=== PATIENT | female | born 1950 | race Caucasian/White ===

== ENCOUNTER 2021-02-17 03:37 | Outpatient (CLI) | payer OTHER, SELFPAY ==
[2021-02-17 12:53] LABS: Source Nasal/Nares
[2021-02-17 17:56] LABS: COVID-19 PCR Negative (Negative)
== END 2021-02-17 03:38 | disposition home or self-care (01) ==
LOC: LBO 03:37
PROVIDERS: PCP Physician Assistant Medical; Visit Provider Ophthalmology
DX: Z20.822 Contact with and (suspected) exposure to COVID-19 (principal); Z01.818 Encounter for other preprocedural examination
CPT/HCPCS: 87635

== ENCOUNTER 2021-02-19 07:27 | Day surgery (SDC) | payer MEDICARE, SELFPAY ==
[2021-02-19] MEDS: Tropicam./Phenyleph. (1/2.5%) 5 ML BTL OS ×3 (07:48→08:00)
[2021-02-19 07:56] VITALS: BP 144/65; PULSE 62; RESP 16; TEMP 36; O2SAT 99
--- NOTE | 2021-02-19 08:01 | ANES.PREOP_ITS ---
General Info Date of Service Date Performed: 02/19/21 Height: 5 ft 1 in Weight: 67.2 kg Body Mass Index (BMI): 28.0 Surgical Procedure: Operation Date: 02/19/21 09:40 Proposed Procedures Side Surgeon p Cataract Extraction with IOL Implant Left Chucho Parson MD Meds Allergies and Home Medications Allergies Allergy/AdvReac Type Severity Reaction Status Date / Time Penicillins Allergy Unknown Verified 02/19/21 07:50 Home Medication Medication Instructions Recorded cholecalciferol (vitamin D3) 125 mcg PO DAILY 02/17/21 [Vitamin D3] omega-3 fatty acids [[place] 3] 1 cap PO DAILY 02/17/21 Current Visit Medications: Current Medications Generic Name Dose Route Start Last Admin Trade Name Freq PRN Reason Stop Dose Admin Acetaminophen 1,000 mg 02/19/21 06:00 Acetaminophen 500 Mg Tab PO Q4H PRN PRN Miscellaneous Medication 0 ml 02/19/21 06:00 Prednisolone 1%, Moxifloxacin 0.5%, Nepafenac 0.1% 5ml Btl OS DIRECTED VIDHYA Miscellaneous Medication 0 ml 02/19/21 06:00 02/19/21 08:00 Tropicam./Phenyleph. (1/2.5%) 5 Ml Btl OS 1 drp DIRECTED VIDHYA Administration Tetracaine HCl 0 ml 02/19/21 06:00 Tetracaine 0.5% 4 Ml Btl OS DIRECTED VIDHYA PFSH Active Problems Active Problems: Problem Status Onset Code Posterior subcapsular age-related cataract of left eye H25.042 Cortical cataract of left eye H26.9 Nuclear sclerotic cataract of left eye H25.12 Medical History Medical History Bilateral cataracts HLD (hyperlipidemia) Osteopenia Prehypertension Rhinitis Vitamin D deficiency Surgical History Surgical History Hx of colonoscopy Hx of tubal ligation S/P tonsillectomy Tobacco Smoking/Tobacco Use Status: Never Alcohol Alcohol Intake: never Substance Use Substance use: Never Substance use type: does not use Vital Signs and Lab Results Vital Signs Most Recent Vital Signs in EMR: Most Recent Vital Signs Temp Pulse Resp BP Pulse Ox 36 C L 62 16 144/65 H 99 02/19/21 07:56 02/19/21 07:56 02/19/21 07:56 02/19/21 07:56 02/19/21 07:56 Lab Results Blood Type / Crossmatch: No Data to Display Complete Blood Count: No Data to Display Complete Metabolic Panel: No Data to Display Liver Function Panel: No Data to Display Coagulation Panel: No Data to Display Cardiac Panel: No Data to Display Arterial Blood Gas: No Data to Display Venous Blood Gas: No Data to Display Pancreas Panel: No Data to Display Thyroid Panel: No Data to Display Infectious Disease: Coronavirus (COVID-19)(PCR) Negative (Negative) 02/17/21 10:06 02/17/21 Coronavirus 2019 Source Nasal/Nares 02/17/21 10:06 02/17/21 Blood Cultures: No Data to Display Toxicology Panel: No Data to Display Anesthesia Assessment and Plan Anesthesia History Personal History: No History of Anesthesia Complications Family History: No Family History of Anesthesia Complications Exercise Tolerance Exercise Tolerance: Metabolic Equivalents>4 Pertinent Negatives Pertinent Negatives: No Symptoms of GERD, No Major Cardiovascular Symptoms or Complaints and No Major Pulmonary Symptoms or Complaints Cardiac & Pulmonary Exam Cardiac Exam: Normal S1/S2 Heart Sounds Pulmonary Exam: Clear Bilateral Breath Sounds Airway Exam Known Difficult Airway: No Mallampati Class: 2 Mouth Opening: Normal (> 3cm) Thyromental Distance: Greater than 3 cm Neck Range of Motion: Full ROM Neck Circumference: Normal Teeth Condition: Removable Dentures/Plates Upper ASA Classification ASA Score: ASA 2 Emergency Case?: No NPO Status NPO Status: NPO Clears >2 hours, Solids >8 hours Anesthesia Plan Resuscitation Status: Full Code Anesthesia Technique: MAC Anesthesia Airway Planned: Natural Airway Monitors Used: Standard Monitors
[2021-02-19 08:19] VITALS: BMI 28.0
[2021-02-19] MEDS: Povidone-Iodine Ophth 30 ML BTL (09:01)
[2021-02-19] MEDS: Lidocaine 2% Jelly 6 ML SYR (09:02)
[2021-02-19] MEDS: Lidocaine 1% Pres-Free 5 ML VIAL (09:03)
[2021-02-19] MEDS: Balanced Salt Soln.-PLUS 500 ML BAG (09:04)
[2021-02-19] MEDS: Duovisc Viscoelastic System EACH 1 EACH (09:04)
[2021-02-19] MEDS: Tetracaine 0.5% 4 ML BTL OS (09:06)
[2021-02-19 09:20] VITALS: BP 142/62; PULSE 58; RESP 18; TEMP 36.2; O2SAT 98
--- NOTE | 2021-02-19 09:20 | W.PM.DSUDISC ---
Discharge Plan Disposition Patient Disposition: HOME Condition: Good Discharge Details Attending Provider: Chucho Parson Primary Care Provider: Mariama Mason Home Meds and New Rx's Prescriptions: No Action [place] 3 Capsule 1 cap PO DAILY RF: 0 cholecalciferol (vitamin D3) [Vitamin D3] 125 mcg (5,000 unit) Tablet 125 mcg PO DAILY RF: 0 Discharge Instructions Stand Alone Forms: Post-op Topical Cataract, Nahid Garcia ([facility]U) Discharge Orders Discharge Orders: Discharge Order (Routine); Ordered 02/19/21 Ordered By: Chucho Parson DS: Diagnosis Discharge Diagnosis (1) Posterior subcapsular age-related cataract of left eye: Status: Resolved (2) Cortical cataract of left eye: Status: Resolved (3) Nuclear sclerotic cataract of left eye: Status: Resolved
--- NOTE | 2021-02-19 09:21 | W.PM.OP ---
Date of service: 02/19/21 Time of Service: : Operative Note Operative Note DATE OF PROCEDURE: 02/19/21 PRE-OP DIAGNOSIS: Nuclear/cortical/posterior subcapsular cataract, left eye POST-OP DIAGNOSIS: same PROCEDURE: Cataract extraction using phacoemulsification with intraocular lens implant, left eye SURGEON: Chucho Parson ANESTHESIA TYPE: Local By Surgeon and MAC Refer to Anesthesia Record PATHOLOGY: none sent COMPLICATIONS: None Patient was transported to: same day Patient's condition: stable Implants: Isiah and Isiah / [employer] Tecnis [id number] Indications: Progressive decreased vision due to cataract, left eye, with poor red reflex Procedure Description: CATARACT SURGERY OPERATIVE REPORT PREOPERATIVE DIAGNOSIS: 1. Nuclear/cortical/posterior subcapsular cataract, left eye POSTOPERATIVE DIAGNOSIS: Same OPERATION: 1. Cataract extraction using phacoemulsification with posterior chamber intraocular lens implant, left eye. IOL: IOL Media Sales Representative/Model: Isiah & Isiah / MAR Tecnis [id number] IOL Power: + 22.0 diopters IOL Serial Number: [id number] Optic Diameter: 6.0 mm Haptic/Overall Diameter: 13.0 mm PHACO INFO: Stefan [employer]urion Vision System with OZil and Active Fluidics Cumulative Dispersed Energy (CDE): 12.12 seconds SURGEON: Chucho Parson MD, ANTHONY ANESTHESIA: Monitored A [facility] (MAC), with local sub-tenon's anesthetic infiltration COMPLICATIONS: None SPECIMENS: None INDICATIONS FOR PROCEDURE: The patient is a 71-year-old lady with history of diminished visual acuity in her left eye secondary to the development of nuclear/cortical/posterior subcapsular cataract. She is significantly symptomatic that she desires cataract surgery and attempt to improve and maximize her vision. The option of cataract surgery was offered to the patient and she wished to proceed. PROCEDURE: The correct surgical eye was identified and marked as the left eye and the pupil was dilated in the preoperative area using mydriatics and cycloplegics. The dilated pupil size was 7.0 mm. She elected to proceed without oral sedation. The patient was brought to the operating room where cardiopulmonary monitoring was instituted and surgical time-out was performed, confirming the correct operative eye and IOL power. Topical anesthesia was administered and ophthalmic povidone-iodine 5% was instilled into the conjunctival fornices. Lidocaine gel was applied to the cornea and the rosa elena-ocular area was prepped with Betadine 10% solution and draped in the usual sterile fashion for intraocular surgery, including an aperture drape. A Tegaderm transparent film dressing was cut in half and used to cover the lashes and lid margins. Care was taken to sequester the lashes and lid margins under the Tegaderm dressing. A lid speculum was placed between the lids of the operative eye and the Stuart-Bryce operating microscope was maneuvered into position. Lucia scissors were then used to make a conjunctival buttonhole approximately 6mm posterior to the limbus in the inferonasal quadrant. Blunt dissection was carried out to expose bare sclera, and a blunt-tipped sub-tenon?s anesthesia cannula was introduced and passed posteriorly along the globe where non-preserved plain lidocaine was injected into posterior sub-Tenon?s space. A sideport knife was used to make a paracentesis port superiorly/superiortemporally. Intraocular phenylephrine/lidocaine was injected int the anterior chamber.. The anterior chamber was filled with viscoelastic. A 2.4mm keratome knife was used to create a half-thickness groove at the limbus and then to construct a three-plane near-clear corneal tunnel extending 2.0mm into clear cornea at the 3:00 position. A flap was raised on the anterior capsule and capsulorhexis forceps were used to complete a continuous curvilinear capsulorhexis of 5.0 mm. Balanced salt solution was then used to perform cortical cleaving hydrodissection and nuclear hydrodelineation until the lens could be freely rotated within the capsular bag. The lens nucleus was then disassembled and removed within the capsular bag and iris plane using phacoemulsification. Residual cortical material was removed using the 45-degree angled silicone I/A tip with 0.3mm port. The posterior capsule was carefully polished to remove as much residual lens epithelial cells as safely possible. The capsular bag was then inflated and the anterior chamber deepened with viscoelastic. The lens implant described above was inserted into the capsular bag using the MAR [place] Injector. A Kuglen hook was used to dial the IOL into position. Residual viscoelastic was then removed first from posterior to the IOL, then from the anterior chamber using the I/A handpiece. The lens implant was noted to center nicely within the capsular bag. The incisions were stromally hydrated, and the anterior chamber was reformed using BSS. Then 0.5cc of moxifloxacin 1.0mg/ml were injected into the capsular bag and anterior chamber. The incisions were checked with a Weck spear and found to be secure. Several drops of ophthalmic povidone-iodine 5% were then applied to the eye followed by two drops of Imprimis combination prednisolone/moxifloxacin/nepafenac solution. The drapes were removed and a clear plastic protective eye shield was placed over the eye. The patient was then returned to Same Day Surgery in stable condition.
--- NOTE | 2021-02-19 09:46 | W.ANESPOSTOP ---
Postoperative Evaluation Date, Time and Location Date Performed: 02/19/21 Time Performed: 09:20 Patient Location: Day Surgery Unit Vital Signs Most Recent Imported Vital Signs: Most Recent Vital Signs Temp Pulse Resp BP Pulse Ox 36.2 C L 58 L 18 142/62 H 98 02/19/21 09:20 02/19/21 09:20 02/19/21 09:20 02/19/21 09:20 02/19/21 09:20 Pain Score Most Recent Pain Score: Most Recent Pain Score Pain Level 0 02/19/21 09:20 Assessment Mental Status: Awake (Alert & Oriented to Patient Baseline) Airway and Respiratory Function: Patent airway with normal (patient baseline) respiratory exam Cardiovascular Function: Hemodynamically Stable Hydration Status: Adequately Hydrated Nausea & Vomiting: No Nausea or Vomiting Pain: Pt. Denies Any Pain Peripheral Nerve Block: Patient did not receive a nerve block
== END 2021-02-19 09:45 | disposition home or self-care (01) ==
PROVIDERS: PCP Physician Assistant Medical; Visit Provider Ophthalmology
PROC: (CPT 66984; principal; 2021-02-19 09:30)
DX: H25.042 Posterior subcapsular polar age-related cataract, left eye (principal)
CPT/HCPCS: 66984; V2632

== ENCOUNTER 2021-02-26 02:39 | Outpatient (CLI) | payer OTHER, SELFPAY ==
[2021-02-26 13:25] LABS: Source Nasal/Nares
[2021-02-26 16:55] LABS: COVID-19 PCR Negative (Negative)
== END 2021-02-26 02:40 | disposition home or self-care (01) ==
LOC: LBO 02:39
PROVIDERS: PCP Physician Assistant Medical; Visit Provider Ophthalmology
DX: Z20.822 Contact with and (suspected) exposure to COVID-19 (principal); Z01.818 Encounter for other preprocedural examination
CPT/HCPCS: 87635

== ENCOUNTER 2021-03-01 07:11 | Day surgery (SDC) | payer OTHER, SELFPAY ==
--- NOTE | 2021-03-01 07:39 | W.ANESPRE ---
General Info Date of Service Date Performed: 03/01/21 Height: 5 ft 1 in Weight: 67.2 kg Body Mass Index (BMI): 28.0 Surgical Procedure: Operation Date: 03/01/21 09:40 Proposed Procedures Side Surgeon p Cataract Extraction with IOL Implant Right Chucho Parson MD Meds Allergies and Home Medications Allergies Allergy/AdvReac Type Severity Reaction Status Date / Time Penicillins Allergy Unknown Verified 03/01/21 08:14 Home Medication Medication Instructions Recorded cholecalciferol (vitamin D3) 125 mcg PO DAILY 02/17/21 [Vitamin D3] omega-3 fatty acids [[place] 3] 1 cap PO DAILY 02/17/21 Current Visit Medications: Current Medications Generic Name Dose Route Start Last Admin Trade Name Freq PRN Reason Stop Dose Admin Acetaminophen 1,000 mg 03/01/21 06:00 Acetaminophen 500 Mg Tab PO Q4H PRN PRN Miscellaneous Medication 0 ml 03/01/21 06:00 Prednisolone 1%, Moxifloxacin 0.5%, Nepafenac 0.1% 5ml Btl OD DIRECTED VIDHYA Miscellaneous Medication 0 ml 03/01/21 06:00 Tropicam./Phenyleph. (1/2.5%) 5 Ml Btl OD DIRECTED VIDHYA Tetracaine HCl 0 ml 03/01/21 06:00 Tetracaine 0.5% 4 Ml Btl OD DIRECTED VIDHYA PFSH Active Problems Active Problems: Problem Status Onset Code Cortical cataract of right eye H26.9 Nuclear sclerotic cataract of right eye H25.11 Posterior subcapsular age-related cataract of left eye H25.042 Cortical cataract of left eye H26.9 Nuclear sclerotic cataract of left eye H25.12 Medical History Medical History Bilateral cataracts HLD (hyperlipidemia) Osteopenia Prehypertension Rhinitis Vitamin D deficiency Surgical History Surgical History Hx of colonoscopy Hx of tubal ligation S/P tonsillectomy Tobacco Smoking/Tobacco Use Status: Never Alcohol Alcohol Intake: never Substance Use Substance use: Never Substance use type: does not use Vital Signs and Lab Results Lab Results Blood Type / Crossmatch: No Data to Display Complete Blood Count: No Data to Display Complete Metabolic Panel: No Data to Display Liver Function Panel: No Data to Display Coagulation Panel: No Data to Display Cardiac Panel: No Data to Display Arterial Blood Gas: No Data to Display Venous Blood Gas: No Data to Display Pancreas Panel: No Data to Display Thyroid Panel: No Data to Display Infectious Disease: Coronavirus (COVID-19)(PCR) Negative (Negative) 02/26/21 11:04 02/26/21 Coronavirus 2019 Source Nasal/Nares 02/26/21 11:04 02/26/21 Blood Cultures: No Data to Display Toxicology Panel: No Data to Display Anesthesia Assessment and Plan Anesthesia History Personal History: No History of Anesthesia Complications Family History: No Family History of Anesthesia Complications Exercise Tolerance Exercise Tolerance: Metabolic Equivalents>4 Pertinent Negatives Pertinent Negatives: No Symptoms of GERD Cardiac & Pulmonary Exam Cardiac Exam: Normal S1/S2 Heart Sounds Pulmonary Exam: Clear Bilateral Breath Sounds Airway Exam Known Difficult Airway: No Mallampati Class: 2 Mouth Opening: Normal (> 3cm) Thyromental Distance: Greater than 3 cm Neck Range of Motion: Full ROM Neck Circumference: Normal Teeth Condition: Normal Dentition and Removable Dentures/Plates Upper ASA Classification ASA Score: ASA 2 Emergency Case?: No NPO Status NPO Status: NPO Clears >2 hours, Solids >8 hours Anesthesia Plan Resuscitation Status: Full Code Anesthesia Technique: MAC Anesthesia Airway Planned: Natural Airway Monitors Used: Standard Monitors
[2021-03-01 08:01] VITALS: BP 124/59; PULSE 51; RESP 16; TEMP 36.8; O2SAT 100
[2021-03-01] MEDS: Tropicam./Phenyleph. (1/2.5%) 5 ML BTL OD ×3 (08:10→08:20)
[2021-03-01 08:33] VITALS: BMI 28.0
[2021-03-01] MEDS: Tetracaine 0.5% 4 ML BTL OD (09:06)
[2021-03-01] MEDS: Duovisc Viscoelastic System EACH 1 EACH (09:09)
[2021-03-01] MEDS: Balanced Salt Soln.-PLUS 500 ML BAG (09:09)
[2021-03-01] MEDS: Lidocaine 1% Pres-Free 5 ML VIAL (09:10)
[2021-03-01] MEDS: Lidocaine 2% Jelly 6 ML SYR (09:10)
[2021-03-01] MEDS: Povidone-Iodine Ophth 30 ML BTL (09:11)
--- NOTE | 2021-03-01 09:30 | W.ANESPOSTOP ---
Postoperative Evaluation Date, Time and Location Date Performed: 03/01/21 Time Performed: 09:31 Patient Location: Day Surgery Unit Vital Signs Most Recent Imported Vital Signs: Most Recent Vital Signs Temp Pulse Resp BP Pulse Ox 36.8 C 51 L 16 124/59 L 100 03/01/21 08:01 03/01/21 08:01 03/01/21 08:01 03/01/21 08:01 03/01/21 08:01 Most Recent Manually Entered Vital Signs: Adult Blood Pressure: 128/60 Heart Rate: 51 Respirations: 18 Oxygen Saturation (%): 99 Temperature (C): 36.1 C Pain Score (0-10 Scale): 0 Pain Score Most Recent Pain Score: Most Recent Pain Score Pain Level 0 03/01/21 08:01 Assessment Mental Status: Awake (Alert & Oriented to Patient Baseline) Airway and Respiratory Function: Patent airway with normal (patient baseline) respiratory exam Cardiovascular Function: Hemodynamically Stable Hydration Status: Adequately Hydrated Nausea & Vomiting: No Nausea or Vomiting Pain: Pt. Denies Any Pain Peripheral Nerve Block: Other (Local by Dr. Parson)
[2021-03-01 09:31] VITALS: BP 128/60; PULSE 51; RESP 18; TEMPC 36.1; O2SAT 99
--- NOTE | 2021-03-01 09:32 | W.PM.DSUDISC ---
Discharge Plan Disposition Patient Disposition: HOME Condition: Good Discharge Details Attending Provider: Chucho Parson Primary Care Provider: Mariama Mason Home Meds and New Rx's Prescriptions: No Action [place] 3 Capsule 1 cap PO DAILY RF: 0 cholecalciferol (vitamin D3) [Vitamin D3] 125 mcg (5,000 unit) Tablet 125 mcg PO DAILY RF: 0 Discharge Instructions Stand Alone Forms: Post-op Topical Cataract Discharge Orders Discharge Orders: Discharge Order (Routine); Ordered 03/01/21 Ordered By: Chucho Parson DS: Diagnosis Discharge Diagnosis (1) Cortical cataract of right eye: Status: Resolved (2) Nuclear sclerotic cataract of right eye: Status: Resolved
--- NOTE | 2021-03-01 09:33 | W.PM.OP ---
Date of service: 03/01/21 Time of Service: 09:33 Operative Note Operative Note DATE OF PROCEDURE: 03/01/21 PRE-OP DIAGNOSIS: Nuclear/cortical cataract, right eye POST-OP DIAGNOSIS: same PROCEDURE: Cataract extraction using phacoemulsification with intraocular lens implant, right eye SURGEON: Chucho Parson ANESTHESIA TYPE: Local By Surgeon and MAC Refer to Anesthesia Record ESTIMATED BLOOD LOSS: 0 PATHOLOGY: none sent COMPLICATIONS: None Patient was transported to: same day Patient's condition: stable Implants: Isiah & Isiah/MAR Tecnis [id number] Indications: Progressive visual loss due to cataract, right eye Procedure Description: CATARACT SURGERY OPERATIVE REPORT PREOPERATIVE DIAGNOSIS: 1. Nuclear/cortical cataract, right eye POSTOPERATIVE DIAGNOSIS: Same OPERATION: 1. Cataract extraction using phacoemulsification with posterior chamber intraocular lens implant, right eye. IOL: IOL French Folder/Model: Isiah & Isiah / MAR Tecnis [id number] IOL Power: + 22.0 diopters IOL Serial Number: [id number] Optic Diameter: 6.0mm Haptic/Overall Diameter: 13.0mm PHACO INFO: Stefan [employer] Vision System with OZil and Active Fluidics Cumulative Dispersed Energy (CDE): 7.36 seconds SURGEON: Chucho Parson MD, ANTHONY ANESTHESIA: Monitored Anesthesia Care (MAC), with local sub-tenon's anesthetic infiltration COMPLICATIONS: None SPECIMENS: None INDICATIONS FOR PROCEDURE: The patient is a 71-year-old lady with history of diminished visual acuity in both eyes secondary to development of bilateral cataracts. She has already undergone cataract surgery in the left eye and is doing well postoperatively. She now presents for cataract surgery in the right eye. PROCEDURE: The correct surgical eye was identified and marked as the right eye and the pupil was dilated in the preoperative area using mydriatics and cycloplegics. The dilated pupil size was 7.0 mm. She elected to proceed without oral sedation.. The patient was brought to the operating room where cardiopulmonary monitoring was instituted and surgical time-out was performed, confirming the correct operative eye and IOL power. Topical anesthesia was administered and ophthalmic povidone-iodine 5% was instilled into the conjunctival fornices. Lidocaine gel was applied to the cornea and the rosa elena-ocular area was prepped with Betadine 10% solution and draped in the usual sterile fashion for intraocular surgery, including an aperture drape. A Tegaderm transparent film dressing was cut in half and used to cover the lashes and lid margins. Care was taken to sequester the lashes and lid margins under the Tegaderm dressing. A lid speculum was placed between the lids of the operative eye and the Stuart-Bryce operating microscope was maneuvered into position. Lucia scissors were then used to make a conjunctival buttonhole approximately 6mm posterior to the limbus in the inferonasal quadrant. Blunt dissection was carried out to expose bare sclera, and a blunt-tipped sub-tenon?s anesthesia cannula was introduced and passed posteriorly along the globe where non-preserved plain lidocaine was injected into posterior sub-Tenon?s space. A sideport knife was used to make a paracentesis port inferotemporally. Intraocular phenylephrine/lidocaine was injected into the anterior chamber. The anterior chamber was filled with viscoelastic. A 2.4mm keratome knife was used to create a half-thickness groove at the limbus and then to construct a three-plane near-clear corneal tunnel extending 2.0mm into clear cornea superiortemporally. A flap was raised on the anterior capsule and capsulorhexis forceps were used to complete a continuous curvilinear capsulorhexis of 5.5 mm. Balanced salt solution was then used to perform cortical cleaving hydrodissection and nuclear hydrodelineation until the lens could be freely rotated within the capsular bag. The lens nucleus was then disassembled and removed within the capsular bag and iris plane using phacoemulsification. Residual cortical material was removed using the I/A handpiece. The posterior capsule was carefully polished to remove as much residual lens epithelial cells as safely possible. The capsular bag was then inflated and the anterior chamber deepened with viscoelastic. The lens implant described above was inserted into the capsular bag using the MAR [place] Injector. A Kuglen hook was used to dial the IOL into position. Residual viscoelastic was then removed first from posterior to the IOL, then from the anterior chamber using the I/A handpiece. The lens implant was noted to center nicely within the capsular bag. The incisions were stromally hydrated, and the anterior chamber was reformed using BSS. Then 0.5cc of moxifloxacin 1.0mg/ml were injected into the capsular bag and anterior chamber. The incisions were checked with a Weck spear and found to be secure. Several drops of ophthalmic povidone-iodine 5% were then applied to the eye followed by two drops of Imprimis combination prednisolone/moxifloxacin/nepafenac solution. The drapes were removed and a clear plastic protective eye shield was placed over the eye. The patient was then returned to Same Day Surgery in stable condition.
[2021-03-01 09:35] VITALS: BP 128/60; PULSE 51; RESP 18; TEMP 36.1; O2SAT 97
== END 2021-03-01 09:44 | disposition home or self-care (01) ==
PROVIDERS: PCP Physician Assistant Medical; Visit Provider Ophthalmology
PROC: (CPT 66984; principal; 2021-03-01 09:30)
DX: H25.11 Age-related nuclear cataract, right eye (principal)
CPT/HCPCS: 66984; V2632